=== PATIENT | female | born 1990 | race Two or more races ===

== ENCOUNTER 2018-11-11 19:01 | Emergency (ER) | payer OTHER ==
[~2018-11-11] VITALS: Ht 152.4 cm; Wt 77.1 kg
[2018-11-11 19:10] VITALS: BP 123/78
[2018-11-11] MEDS ORDERED: Metoclopramide 10mg/2ml Inj IM ONE (19:30)
[2018-11-11] MEDS ORDERED: LORazepam 0.5mg tab ORAL ONE (19:45)
[2018-11-11 20:00] LABS: APPEARANCE,URINE CLEAR; BILIRUBIN, URINE NEGATIVE (NEGATIVE); COLOR,URINE PALE YELLOW; GLUCOSE, URINE (UA) NEGATIVE (NEGATIVE); KETONES,URINE 2+ (NEGATIVE); LEUKOCYTE ESTERASE ,URINE NEGATIVE (NEGATIVE); NITRITE,URINE NEGATIVE (NEGATIVE); PH,URINE 6 (4.5-8.0); PROTEIN,URINE 1+ (NEGATIVE); UROBILINOGEN,URINE NORMAL MG/DL (0.0-1.0)
--- NOTE | 2018-11-11 20:20 | Emergency Room Report ---
History of Present Illness General Chief Complaint: General Complaint Source: Patient Present Illness HPI 28-year-old female presents to the emergency department complaining of 9 out of 10 in severity migraine headache with a quickly progressive onset which she describes as pain throbbing sensation on the right side of her head with blurry vision and pain right behind the right eye. Patient states she has a history of migraines. Patient also reports that she progressive onset of numbness and tingling in the lateral aspects of both hands as well as rapid breathing and feeling as though her body is very heavy. Patient denies unilateral weakness, loss of gross motor movements, loss of vision or recent visual field. Patient reports that she typically gets right-sided migraine she states that she usually has an aura with pain behind her right eye or visual changes prior to migraine. Patient states she's been having frequent migraines the last 2 weeks where as normally she has one once every few weeks and they typically respond Advil. Patient reports She had progressive onset of her symptoms driving in the car today. Denies N/V. Patient reports multiple times how she is under quite a lot of stress with relationship, school, work and an alcoholic father. Patient is here with her boyfriend who also states that she has had several panic attack-like episodes at school recently usually when someone of authority asked to speak with her. Patient denies previous history of psychiatric diagnoses, hospitalizations her psychiatric medication trials. Patient states that upon arrival at the emergency department her symptoms began to improve. She denies hx of smoking or illicit drug use, recent travel, estrogen use, or increased risk for blood clots. Pt. denies taking blood thinning medications, trauma or fall. Denies night sweats, appetite loss or significant changes in weight. Allergies: Coded Allergies: No Known Allergies (Unverified , 11/11/18) Patient History Past Medical History: see triage record Past Surgical History: none Pertinent Family History: none Last Menstrual Period: 10/23/18 Now: No Reviewed Nursing Documentation: PMH: Agreed; PSxH: Agreed Nursing Documentation-PMH Past Medical History: No Stated History Review of Systems All Other Systems: negative except mentioned in HPI Physical Exam Vital Signs Date Time Temp Pulse Resp B/P (MAP) Pulse Ox O2 Delivery O2 Flow Rate FiO2 11/11/18 19:06 98.2 113 19 129/81 98 Room Air Sp02 EP Interpretation: reviewed, normal General Appearance: alert, GCS 15, non-toxic, mild distress Head: normocephalic, atraumatic Eyes: bilateral eye normal inspection, bilateral eye PERRL, bilateral eye EOMI , bilateral eye other - no photophobia, no nystagmus ENT: hearing grossly normal, normal voice Neck: full range of motion Respiratory: chest non-tender, lungs clear, normal breath sounds, speaking full sentences Cardiovascular #1: regular rate, rhythm, normal capillary refill Musculoskeletal: back normal, gait/station normal, normal range of motion, non- tender Neurologic: alert, oriented x3, responsive, motor strength/tone normal, sensory intact, normal gait, speech normal, no pronator, other - no facial droop , no facial paralysis, no nystagmus, no ataxia, grossly normal Psychiatric: judgement/insight normal Skin: normal color, no rash, warm/dry, well hydrated Medical Decision Making PA Attestation Dr. Nina is my supervising Physician whom patient management has been discussed with. Diagnostic Impression: Primary Impression: Headache Qualified Codes: R51 - Headache Additional Impression: Panic anxiety syndrome ER Course 28-year-old female presents to the emergency department complaining of 9 out of 10 in severity migraine headache with a quickly progressive onset which she describes as pain throbbing sensation on the right side of her head with blurry vision and pain right behind the right eye. Patient states she has a history of migraines. Patient also reports that she progressive onset of numbness and tingling in the lateral aspects of both hands as well as rapid breathing and feeling as though her body is very heavy. Patient denies unilateral weakness, loss of gross motor movements, loss of vision or recent visual field. Patient reports that she typically gets right-sided migraine she states that she usually has an aura with pain behind her right eye or visual changes prior to migraine. Patient states she's been having frequent migraines the last 2 weeks where as normally she has one once every few weeks and they typically respond Advil. Patient reports She had progressive onset of her symptoms driving in the car today. Denies N/V. Patient reports multiple times how she is under quite a lot of stress with relationship, school, work and an alcoholic father. Patient is here with her boyfriend who also states that she has had several panic attack-like episodes at school recently usually when someone of authority asked to speak with her. Patient denies previous history of psychiatric diagnoses, hospitalizations her psychiatric medication trials. Patient states that upon arrival at the emergency department her symptoms began to improve. She denies hx of smoking or illicit drug use, recent travel, estrogen use, or increased risk for blood clots. Pt. denies taking blood thinning medications, trauma or fall. Denies night sweats, appetite loss or significant changes in weight. Ddx considered but are not limited to anxiety, MO, PE, asthma, thyroid storm, hyperthyroid, EPS, Vital signs: are WNL, pt. is afebrile H&PE are most consistent with anxiety attack with PAYTON. Pt. has normal neurol exam , no focal neurological deficits, no blood clot risk factors. ORDERS: -UA: WNL -Hcg : Negative ED INTERVENTIONS: - 0.5mg Ativan -Reglan 10mg PO Pt. reports improvement of her symptoms. D/w pt. conservative treatment and temporary rx for anxiety reactions, She is given [facility] urgent care and [place] outpatient center resource information. pt. is instructed on use of ativan and educated on its highly addictive and dependent properties. - I reviewed this pt. CURES report and there are no active prescriptions for controlled substances in [place] at this time. DISCHARGE: At this time pt. is stable for d/c to home. Will provide printed patient care instructions, and any necessary prescriptions. Care plan and follow up instructions have been discussed with the patient prior to discharge. Labs Test 11/11/18 19:45 Urine Color Pale yellow Urine Appearance Clear Urine pH 6 (4.5-8.0) Urine Specific [place] 1.020 (1.005-1.035) Urine Protein 1+ (NEGATIVE) Urine Glucose (UA) Negative (NEGATIVE) Urine Ketones 2+ (NEGATIVE) Urine Blood 1+ (NEGATIVE) Urine Nitrite Negative (NEGATIVE) Urine Bilirubin Negative (NEGATIVE) Urine Urobilinogen Normal MG/DL (0.0-1.0) Urine Leukocyte Esterase Negative (NEGATIVE) Urine RBC 0-2 /HPF (0 - 2) Urine WBC 0-2 /HPF (0 - 2) Urine Squamous Epithelial Cells Few /LPF (NONE/OCC) Urine Bacteria Few /HPF (NONE) Urine HCG, Qualitative Negative (NEGATIVE) Last Vital Signs Date Time Temp Pulse Resp B/P (MAP) Pulse Ox O2 Delivery O2 Flow Rate FiO2 12/20/18 19:10 96 18 Room Air 11/11/18 19:10 98.6 123/78 98 Disposition: HOME, SELF-CARE Condition: Stable Scripts Aspirin/Acetaminophen/Caffeine (EXCEDRIN MIGRAINE GELTAB) 1 Each Tablet 1 EACH PO Q6HR, #30 TAB Prov: Linnea Radford 11/11/18 Lorazepam* (ATIVAN*) 0.5 Mg Tablet 0.5 MG ORAL Q8HR PRN for For Anxiety, #8 TAB Prov: Linnea Radford 11/11/18 Referrals: [facility]ERR[facility] (PCP) Departure Forms: Return to School, Return to School On: Nov 16, 2018 School Release Restrictions: None Other School Release Restrictions: May return Sooner if Symptoms have resolved. Return to Full Activity: Nov 16, 2018 Return to Work Return to Work Date: Nov 16, 2018 Work Restrictions: None Other Restrictions: May return Sooner if Symptoms have resolved. Return to Full Activity: Nov 16, 2018 Patient Instructions: Generalized Anxiety Disorder, Migraine Headache, Easy-to- Read, Panic Attacks Additional Instructions: Take medications as directed. Do not drink alcohol, drive, or operate heavy machinery while taking Ativan as this may cause drowsiness. --!-- This medication is not meant for prevention it is to be used as a "rescue" medication to stop an attack only when you begin to have symptoms. This medication is highly addictive so care must be taken to only use when medically necessary. Recommend Follow Up at [facility] for anxiety/panic attack evaluation and medication management Information is provided. Follow up with a Primary Care Provider in 3-5 days, even if your symptoms have resolved. --Please review list of primary care clinics, if you do not already have a primary care provider Return sooner to ED if new symptoms occur, or current symptoms become worse. - Please note that this Emergency Department Report was dictated using [employer] operator technology software, occasionally this can lead to erroneous entry secondary to interpretation by the dictation equipment. Linnea Radford Nov 11, 2018 20:20
[2018-11-11] MEDS ORDERED: EXCEDRIN MIGRA1 EACH PO (20:22)
[2018-11-11] MEDS ORDERED: ATIVAN0.5 MG ORAL (20:22)
[2018-11-11 20:30] VITALS: BP 121/76
== END 2018-11-11 20:30 | disposition home or self-care (01) ==
LOC: EMR 20:06
DX: G43.909 Migraine, unspecified, not intractable, without status migrainosus (principal); F41.0 Panic disorder [episodic paroxysmal anxiety]
CPT/HCPCS: 81003; 81025; 99283

== ENCOUNTER 2019-11-02 21:36 | Emergency (ER) | payer OTHER ==
[~2019-11-02] VITALS: Ht 152.4 cm; Wt 74.8 kg
[~2019-11-02 21:36] MED LIST: ATIVAN0.5 MG ORAL; EXCEDRIN MIGRA1 EACH PO
[2019-11-02 21:53] VITALS: BP 124/81
--- NOTE | 2019-11-02 22:33 | Emergency Room Report ---
History of Present Illness General Chief Complaint: Allergic Reaction Source: Patient Present Illness HPI Patient is a 28-year-old female presents after increased skin rash. Patient reports having eaten shrimp earlier in the day. She subsequently developed a rash throughout her body. She had taken 25 mg of Benadryl prior to arrival without any improvement. She denies any shortness of breath or tongue swelling. She denies prior episodes. She denies being . She had not been taking any medications regularly. Allergies: Coded Allergies: No Known Allergies (Unverified , 11/11/18) Patient History Past Medical History: see triage record Now: No Reviewed Nursing Documentation: PMH: Agreed; PSxH: Agreed Nursing Documentation-PMH Past Medical History: No Stated History Review of Systems All Other Systems: negative except mentioned in HPI Physical Exam Vital Signs Date Time Temp Pulse Resp B/P (MAP) Pulse Ox O2 Delivery O2 Flow Rate FiO2 11/02/19 21:53 98.4 98 18 124/81 98 Room Air General Appearance: well appearing, no apparent distress, alert, GCS 15 Head: normocephalic, atraumatic ENT: hearing grossly normal, normal voice Neck: full range of motion, supple Respiratory: lungs clear, no respiratory distress, speaking full sentences Gastrointestinal: normal inspection Musculoskeletal: normal inspection, no calf tenderness Neurologic: alert, motor strength/tone normal, [employer] III-XII nml as tested, oriented x3, normal gait Psychiatric: mood/affect normal Skin: other - Generalized urticarial rash Medical Decision Making Diagnostic Impression: Primary Impression: Allergic reaction ER Course Patient presents with skin rash. Differential diagnosis include was not limited to allergic reaction, -induced urticaria, among others. Patient has a benign exam and does not appear to require any imaging or laboratory testing at this time. Patient is given oral Benadryl as well as oral steroids. test was negative.Patient was noted to have improvement in rash. Patient will be discharged home. the patient is advised to follow up with primary care doctor in 1-2 days. Patient is advised to return if any worsening condition or if any changes in status that are concerning. This report is dictated with [employer] acct exec software which may occasionally lead to discrepancies related to use of this software. Labs Test 11/02/19 22:00 Urine HCG, Qualitative Negative (NEGATIVE) Last Vital Signs Date Time Temp Pulse Resp B/P (MAP) Pulse Ox O2 Delivery O2 Flow Rate FiO2 11/02/19 21:58 89 16 Room Air 11/02/19 21:53 98.4 124/81 (95) 98 Status: improved Disposition: HOME, SELF-CARE Condition: Stable Scripts Prednisone* (PREDNISONE*) 20 Mg Tablet 40 MG ORAL DAILY, #10 TAB Prov: Abhinav Nina MD 11/02/19 Diphenhydramine Hcl* (BENADRYL*) 25 Mg Capsule 25 MG ORAL Q6H PRN for Itching, #30 CAP Prov: Abhinav Nina MD 11/02/19 Abhinav Nina MD Nov 02, 2019 22:33
[2019-11-02 23:00] VITALS: BP 114/72
[2019-11-02] MEDS ORDERED: BENADRYL25 MG ORAL (23:04)
[2019-11-02] MEDS ORDERED: PREDNISONE20 MG ORAL (23:05)
[2019-11-02 23:12] VITALS: BP 114/72
== END 2019-11-02 23:10 | disposition home or self-care (01) ==
LOC: EMR 23:10
DX: T78.40XA Allergy, unspecified, initial encounter (principal); X58.XXXA Exposure to other specified factors, initial encounter
CPT/HCPCS: 81025; J7512; Z7502; 99283